=== PATIENT | female | born 1950 | race Caucasian/White ===

== ENCOUNTER 2017-11-27 23:03 | Emergency (ER) | payer MEDICARE, OTHER ==
[~2017-11-27] VITALS: Ht 165.1 cm; Wt 102.3 kg
[2017-11-28] MEDS ORDERED: EPIN0.3P8 IM (01:35)
[2017-11-28] MEDS ORDERED: PRED50TA PO (01:35)
[2017-11-28] MEDS ORDERED: FAMO40TA73 PO (01:35)
[2017-11-28] MEDS ORDERED: famotidine 20mg tablet PO ONE (01:40)
[2017-11-28] MEDS ORDERED: methylPREDNISolone sod succ 125mg/2ml vial IV ONE (01:40)
[2017-11-28 02:07] VITALS: BP 114/60
== END 2017-11-28 02:09 | disposition home or self-care (01) ==
LOC: ER 23:04
DX: T78.1XXA Other adverse food reactions, not elsewhere classified, initial encounter (principal); L29.9 Pruritus, unspecified; I10 Essential (primary) hypertension; X58.XXXA Exposure to other specified factors, initial encounter
CPT/HCPCS: 96374; 99284; J2930

== ENCOUNTER 2021-04-21 14:38 | Emergency (ER) | payer MEDICARE, OTHER ==
[~2021-04-21] VITALS: Ht 165.1 cm; Wt 104.5 kg
[~2021-04-21 14:38] MED LIST: EPIN0.3P8 IM; FAMO40TA73 PO; PRED50TA PO
[2021-04-21 15:44] LABS: BASOPHILS # (AUTO) 0.1 X10'3 (0-0.2); BASOPHILS % (AUTO) 0.6 % (0-1); EOSINOPHILS # (AUTO) 0.1 X10'3 (0-0.9); EOSINOPHILS % (AUTO) 0.6 % (0-6); HEMATOCRIT 38.1 % (35.0-45.0); HEMOGLOBIN 13.1 g/dl (12.0-16.0); LYMPHOCYTES # (AUTO) 2.6 X10'3 (1.1-4.8); LYMPHOCYTES % (AUTO) 24.6 % (21-51); MEAN CORPUSCULAR HEMOGLOBIN 28.8 PG (27.0-31.0); MEAN CORPUSCULAR HGB CONC 34.5 g/dL (33.0-36.5); MEAN CORPUSCULAR VOLUME 83.6 FL (78-98); MONOCYTES # (AUTO) 0.6 X10'3 (0-0.9); MONOCYTES % (AUTO) 5.9 % (2-12); NEUTROPHILS # (AUTO) 7.4 X10'3 (1.8-7.7); NEUTROPHILS % (AUTO) 68.3 % (42-75); PLATELET COUNT 391 X10'3 (140-440); RED BLOOD COUNT 4.56 X10'6 (4.20-5.60); RED CELL DISTRIBUTION WIDTH 15.4 % (11.5-14.5); WHITE BLOOD COUNT 10.8 X10'3 (4.5-11.0)
[2021-04-21 15:45] LABS: CLARITY,URINE SLIGHTLY CLOUDY (Clear); GLUCOSE, URINE NEGATIVE (Neg); KETONES,URINE NEGATIVE (Neg); LEUKOCYTE ESTERASE ,URINE NEGATIVE (Neg); NITRITES, URINE NEGATIVE (Neg); OCCULT BLOOD,URINE TRACE-INTACT (Neg); PROTEIN,URINE NEGATIVE (Neg); UROBILINOGEN,URINE 0.2 E.U/dL (0.2-1.0)
[2021-04-21 15:49] LABS: PARTIAL THROMBOPLASTIN TIME 28 SECONDS (22-32)
[2021-04-21 15:51] LABS: COLOR,URINE STRAW (Yellow); UA COLLECTION TYPE CLN CATCH MIDSTREAM
[2021-04-21 15:54] LABS: ALANINE AMINOTRANSFERASE 30 U/L (12-78); ALBUMIN 3.3 G/DL (3.4-5.0); ALBUMIN/GLOBULIN RATIO 0.7 (1.1-1.5); ALKALINE PHOSPHATASE 118 IU/L (46-116); ANION GAP 11 (8-16); ASPARTATE AMINO TRANSFERASE 19 U/L (10-37); BILIRUBIN,TOTAL 0.3 MG/DL (0.1-1.0); BLOOD UREA NITROGEN 16 MG/DL (7-18); CALCIUM 8.9 MG/DL (8.5-10.1); CHLORIDE 101 MMOL/L (99-107); GLUCOSE 130 MG/DL (70-104); SODIUM 141 MMOL/L (135-145); TOTAL PROTEIN 7.9 G/DL (6.4-8.2); eGFR 55 ML/MIN
[2021-04-21 16:11] LABS: POTASSIUM 2.9 MMOL/L (3.5-5.1); WBC,URINE 0-4 /HPF (0-4)
[2021-04-21 16:12] LABS: BACTERIA,URINE FEW /HPF (Neg); RBC,URINE 0-2 /HPF (0-2); TRANSITIONAL EPI CELLS,URINE FEW /HPF
[2021-04-21 16:14] LABS: SQUAMOUS EPITHELIAL CELL,UR MODERATE /LPF (FEW)
[2021-04-21 18:52] VITALS: BP 165/77
== END 2021-04-21 18:53 | disposition home or self-care (01) ==
LOC: ER 14:40
DX: E87.8 Other disorders of electrolyte and fluid balance, not elsewhere classified (principal); R94.8 Abnormal results of function studies of other organs and systems; R68.84 Jaw pain; H92.02 Otalgia, left ear; R42 Dizziness and giddiness; I10 Essential (primary) hypertension; G89.29 Other chronic pain; Z79.899 Other long term (current) drug therapy
CPT/HCPCS: 36415; 70450; 71045; 80053; 81001; 84484; 85025; 85610; 85730; 93005; 99285